=== PATIENT | male | born 1960 | race Caucasian/White ===

== ENCOUNTER 2020-07-27 12:26 | Inpatient (IN) | payer OTHER ==
[2020-07-27 17:19] VITALS: BMI 19.0
[2020-07-27] MEDS ORDERED: NICOTINE POLACRILEX 2 MG GUM BUC PRN (17:19)
[2020-07-27] MEDS ORDERED: METHOCARBAMOL 500 MG TABLET PO PRN (17:19)
[2020-07-27] MEDS ORDERED: BISMUTH SUBSALICYLATE 524 MG/30 ML UD PO PRN (17:19)
[2020-07-27] MEDS ORDERED: MAG HYDROX/AL HYDROX/SIMETH 30 ML UNIT-DOSE CUP PO PRN (17:19)
[2020-07-27] MEDS ORDERED: IBUPROFEN 400 MG TABLET (FP) PO PRN (17:19)
[2020-07-27] MEDS ORDERED: MAGNESIUM CITRATE 300 ML BOTTLE PO PRN (17:19)
[2020-07-27] MEDS ORDERED: ACETAMINOPHEN 325 MG TABLET (FP) PO PRN ×2 (17:19)
[2020-07-27] MEDS ORDERED: MAGNESIUM HYDROX 2400MG/30ML ORAL SUSPENSION 30 ML CUP PO PRN (17:19)
[2020-07-27] MEDS ORDERED: chlordiazePOXIDE HCL 25 MG CAPSULE PO PRN (17:19)
[2020-07-27] MEDS ORDERED: ONDANSETRON *ODT* 4 MG TABLET SL PRN (17:19)
[2020-07-27] MEDS ORDERED: MENTHOL/PHENOL 1 EACH UD MM PRN (17:19)
[2020-07-27] MEDS: chlordiazePOXIDE HCL 25 MG CAPSULE PO SCH ×2 (20:23→23:04)
[2020-07-27] MEDS: hydrOXYzine PAMOATE 25 MG CAPSULE (FP) PO SCH ×2 (20:25→23:05)
[2020-07-27] MEDS: PRENATAL VITAMINS W/ FOLIC ACID TABLET (FP) PO SCH (20:26)
[2020-07-27] MEDS: THIAMINE HCL 100 MG TABLET (FP) PO SCH (23:04)
[2020-07-27] MEDS: MELATONIN 5 MG TABLETS PO SCH (23:05)
[2020-07-28] MEDS: chlordiazePOXIDE HCL 25 MG CAPSULE PO SCH ×4 (05:53→22:15)
[2020-07-28] MEDS: hydrOXYzine PAMOATE 25 MG CAPSULE (FP) PO SCH ×5 (05:53→22:14)
[2020-07-28] MEDS ORDERED: METHADONE HCL 10 MG TABLET PO ONE (09:09)
[2020-07-28] MEDS ORDERED: METHADONE 80 MG, METHADONE 20 MG, METHADONE 5 MG PO ONE (09:30)
[2020-07-28] MEDS ORDERED: METHADONE HCL 40 MG DISPERSABLE TABLET ONE (09:45)
[2020-07-28] MEDS ORDERED: METHADONE HCL 10 MG TABLET ONE (09:45)
[2020-07-28] MEDS ORDERED: METHADONE HCL 5 MG TABLET ONE (09:45)
[2020-07-28] MEDS ORDERED: NICOTINE 21 MG/24 HOURS TOPICAL PATCH TD SCH (10:00)
[2020-07-28] MEDS: PRENATAL VITAMINS W/ FOLIC ACID TABLET (FP) PO SCH (10:29)
[2020-07-28 10:47] LABS: HEMATOCRIT 41.8 % (35.4-49); MCH 29.4 pg (25.7-33.7); MCHC 33.6 g/dl (32.0-35.9); MEAN CELL VOLUME 87.6 fl (80-96); MEAN PLT VOLUME 9.9 fl (7.5-11.1); PLATELET COUNT 237 K/MM3 (134-434); RBC 4.76 M/mm3 (4.00-5.60); RDW 15.7 % (11.9-15.9); WHITE BLOOD COUNT 9.1 K/mm3 (4.0-10.0)
[2020-07-28 10:48] LABS: POTASSIUM 3.9 mmol/L (3.5-5.1)
[2020-07-28 10:57] LABS: BLOOD UREA NITROGEN 12.9 mg/dL (7-18); CALCIUM 8.8 mg/dL (8.5-10.1)
[2020-07-28 11:00] LABS: CREATININE 0.6 mg/dL (0.55-1.3)
[2020-07-28 11:02] LABS: BILIRUBIN,TOTAL 1.5 mg/dL (0.2-1)
[2020-07-28 17:31] VITALS: TEMP 97.8
[2020-07-28] MEDS: MELATONIN 5 MG TABLETS PO SCH (22:14)
[2020-07-28] MEDS: THIAMINE HCL 100 MG TABLET (FP) PO SCH (22:14)
[2020-07-28 23:08] VITALS: BP 146/104; PULSE 125
[2020-07-29] MEDS ORDERED: chlordiazePOXIDE HCL 25 MG CAPSULE PO SCH (05:00)
[2020-07-29] MEDS ORDERED: METHADONE 80 MG, METHADONE 20 MG, METHADONE 5 MG PO SCH (06:00)
[2020-07-29] MEDS ORDERED: METHADONE HCL 40 MG DISPERSABLE TABLET PO SCH (06:00)
[2020-07-30] MEDS ORDERED: chlordiazePOXIDE HCL 10 MG CAPSULE PO PRN
[2020-07-30] MEDS ORDERED: chlordiazePOXIDE HCL 10 MG CAPSULE PO SCH (05:00)
[2020-07-31] MEDS ORDERED: chlordiazePOXIDE HCL 10 MG CAPSULE PO SCH (05:00)
[2020-08-01] MEDS ORDERED: chlordiazePOXIDE HCL 10 MG CAPSULE PO ONE (05:00)
== END 2020-07-28 23:08 | disposition left against medical advice (07) | DRG 770 ==
LOC: YASAS 12:26 → Y3N 17:38
PROVIDERS: ADMIT Allergy & Immunology; ATTEND Allergy & Immunology
PROC: HZ2ZZZZ Detoxification Services for Substance Abuse Treatment (ICD-10-PCS; principal; 2020-07-27)
DX: F10.230 Alcohol dependence with withdrawal, uncomplicated (principal); F11.20 Opioid dependence, uncomplicated; F17.210 Nicotine dependence, cigarettes, uncomplicated; F19.24 Other psychoactive substance dependence with psychoactive substance-induced mood disorder; F43.10 Post-traumatic stress disorder, unspecified; I10 Essential (primary) hypertension; J44.9 Chronic obstructive pulmonary disease, unspecified; K21.9 Gastro-esophageal reflux disease without esophagitis; M54.5 Low back pain; G89.29 Other chronic pain; R56.1 Post traumatic seizures; Z87.820 Personal history of traumatic brain injury; R63.4 Abnormal weight loss; Z68.1 Body mass index [BMI] 19.9 or less, adult; Z56.0 Unemployment, unspecified; Z59.0 Homelessness
CPT/HCPCS: 36415; 80053; 85027; 86780; 93005; 93010; C9803; U0003

== ENCOUNTER 2021-02-21 12:32 | Inpatient (IN) | payer OTHER ==
[2021-02-21 13:59] VITALS: BMI 18.2
[2021-02-21] MEDS ORDERED: MAG HYDROX/AL HYDROX/SIMETH 30 ML UNIT-DOSE CUP PO PRN (14:51)
[2021-02-21] MEDS ORDERED: MENTHOL/PHENOL 1 EACH UD MM PRN (14:51)
[2021-02-21] MEDS ORDERED: MAGNESIUM HYDROX 2400MG/30ML ORAL SUSPENSION 30 ML CUP PO PRN (14:51)
[2021-02-21] MEDS ORDERED: IBUPROFEN 400 MG TABLET (FP) PO PRN (14:51)
[2021-02-21] MEDS ORDERED: ONDANSETRON *ODT* 4 MG TABLET SL PRN (14:51)
[2021-02-21] MEDS ORDERED: ACETAMINOPHEN 325 MG TABLET (FP) PO PRN ×2 (14:51)
[2021-02-21] MEDS ORDERED: NICOTINE POLACRILEX 4 MG GUM BUC PRN (14:51)
[2021-02-21] MEDS ORDERED: MAGNESIUM CITRATE 300 ML BOTTLE PO PRN (14:51)
[2021-02-21] MEDS ORDERED: BISMUTH SUBSALICYLATE 524 MG/30 ML PO PRN (14:51)
[2021-02-21] MEDS ORDERED: NICOTINE 10 MG CARTRIDGE (INHALER) IH PRN (14:51)
[2021-02-21] MEDS ORDERED: clonazePAM 0.5 MG ODT TABLETS SL PRN (15:15)
[2021-02-21] MEDS ORDERED: methaDONE HCL 10 MG TABLET (FOR DETOX USE ONLY) PO ONE (15:45)
[2021-02-21] MEDS ORDERED: diazePAM 5 MG TABLET PO SCH (17:00)
[2021-02-21] MEDS: diazePAM 5 MG TABLET PO SCH ×2 (18:15→23:05)
[2021-02-21] MEDS: cloNIDine HCL 0.1 MG TABLET PO PRN ×2 (18:15→22:26)
[2021-02-21] MEDS: hydrOXYzine PAMOATE 25 MG CAPSULE (FP) PO PRN (18:15)
[2021-02-21] MEDS: METHOCARBAMOL 500 MG TABLET PO PRN (20:25)
[2021-02-21] MEDS: THIAMINE HCL 100 MG TABLET (FP) PO SCH (22:26)
[2021-02-21] MEDS: MELATONIN 5 MG TABLETS PO SCH (22:26)
[2021-02-22] MEDS: diazePAM 5 MG TABLET PO SCH ×3 (05:26→17:58)
[2021-02-22 08:20] LABS: HEMATOCRIT 39.5 % (35.4-49); HEMOGLOBIN 13.7 GM/dL (11.7-16.9); MCHC 34.7 g/dl (32.0-35.9); MEAN CELL VOLUME 89.3 fl (80-96); MEAN PLT VOLUME 9.8 fl (7.5-11.1); PLATELET COUNT 223 10^3/uL (134-434); RBC 4.42 M/mm3 (4.00-5.60); RDW 14.3 % (11.9-15.9); WHITE BLOOD COUNT 6.3 K/mm3 (4.0-10.0)
[2021-02-22 08:50] LABS: ALBUMIN 3.2 g/dl (3.4-5.0); BLOOD UREA NITROGEN 24.3 mg/dL (7-18); CALCIUM 9.1 mg/dL (8.5-10.1)
[2021-02-22 08:53] LABS: CREATININE 0.8 mg/dL (0.55-1.3)
[2021-02-22 08:54] LABS: BILIRUBIN,TOTAL 0.5 mg/dL (0.2-1); TOT PROT 6.7 g/dl (6.4-8.2)
[2021-02-22] MEDS: PRENATAL VITAMINS W/ FOLIC ACID TABLET (FP) PO SCH (10:30)
[2021-02-22] MEDS: NIFEdipine E.R 60 MG TABLET PO SCH (10:30)
[2021-02-22] MEDS: hydrOXYzine PAMOATE 25 MG CAPSULE (FP) PO PRN ×2 (17:59→22:08)
[2021-02-22] MEDS: cloNIDine HCL 0.1 MG TABLET PO PRN ×2 (17:59→22:08)
[2021-02-22] MEDS: THIAMINE HCL 100 MG TABLET (FP) PO SCH (22:08)
[2021-02-22] MEDS: METHOCARBAMOL 500 MG TABLET PO PRN (22:08)
[2021-02-22] MEDS: MELATONIN 5 MG TABLETS PO SCH (22:08)
[2021-02-22] MEDS: diazePAM 5 MG TABLET PO PRN (22:08)
[2021-02-23] MEDS: diazePAM 5 MG TABLET PO SCH ×3 (05:29→22:10)
[2021-02-23] MEDS ORDERED: diazePAM 5 MG TABLET PO SCH (06:00)
[2021-02-23] MEDS ORDERED: methaDONE HCL 10 MG TABLET (FOR DETOX USE ONLY) PO ONE (10:00)
[2021-02-23] MEDS: PRENATAL VITAMINS W/ FOLIC ACID TABLET (FP) PO SCH (10:28)
[2021-02-23] MEDS: NIFEdipine E.R 60 MG TABLET PO SCH (10:29)
[2021-02-23] MEDS: METHOCARBAMOL 500 MG TABLET PO PRN (10:29)
[2021-02-23] MEDS: hydrOXYzine PAMOATE 25 MG CAPSULE (FP) PO PRN (10:31)
[2021-02-23] MEDS: diazePAM 5 MG TABLET PO PRN (10:31)
[2021-02-23] MEDS: methaDONE HCL 10 MG TABLET PO SCH (18:06)
[2021-02-23] MEDS: MELATONIN 5 MG TABLETS PO SCH (22:10)
[2021-02-23] MEDS: THIAMINE HCL 100 MG TABLET (FP) PO SCH (22:10)
[2021-02-24] MEDS ORDERED: diazePAM 5 MG TABLET PO SCH (06:00)
[2021-02-24] MEDS: methaDONE HCL 10 MG TABLET PO SCH (06:01)
[2021-02-24] MEDS: diazePAM 5 MG TABLET PO SCH ×2 (06:03→18:11)
[2021-02-24] MEDS: PRENATAL VITAMINS W/ FOLIC ACID TABLET (FP) PO SCH (10:25)
[2021-02-24] MEDS: NIFEdipine E.R 60 MG TABLET PO SCH (10:25)
[2021-02-24] MEDS: diazePAM 5 MG TABLET PO PRN (10:25)
[2021-02-24] MEDS: THIAMINE HCL 100 MG TABLET (FP) PO SCH (22:08)
[2021-02-24] MEDS: hydrOXYzine PAMOATE 25 MG CAPSULE (FP) PO PRN (22:09)
[2021-02-24] MEDS: MELATONIN 5 MG TABLETS PO SCH (22:09)
[2021-02-25] MEDS: methaDONE HCL 10 MG TABLET PO SCH (05:16)
[2021-02-25] MEDS ORDERED: diazePAM 5 MG TABLET PO ONE ×2 (06:00)
[2021-02-25] MEDS ORDERED: methaDONE HCL 10 MG TABLET (FOR DETOX USE ONLY) PO ONE (10:00)
[2021-02-25 10:06] VITALS: BP 134/73; PULSE 81; TEMP 96.9
[2021-02-25] MEDS: NIFEdipine E.R 60 MG TABLET PO SCH (10:54)
[2021-02-25] MEDS: PRENATAL VITAMINS W/ FOLIC ACID TABLET (FP) PO SCH (10:54)
== END 2021-02-25 13:33 | disposition other institution (70) | DRG 773 ==
LOC: YASAS 12:32 → Y3N 14:50
PROVIDERS: ADMIT Allergy & Immunology; ATTEND Allergy & Immunology
PROC: HZ2ZZZZ Detoxification Services for Substance Abuse Treatment (ICD-10-PCS; principal; 2021-02-21)
DX: F10.230 Alcohol dependence with withdrawal, uncomplicated (principal); F11.20 Opioid dependence, uncomplicated; F13.20 Sedative, hypnotic or anxiolytic dependence, uncomplicated; F17.210 Nicotine dependence, cigarettes, uncomplicated; F19.24 Other psychoactive substance dependence with psychoactive substance-induced mood disorder; F41.9 Anxiety disorder, unspecified; G40.909 Epilepsy, unspecified, not intractable, without status epilepticus; I10 Essential (primary) hypertension; J44.9 Chronic obstructive pulmonary disease, unspecified; K21.9 Gastro-esophageal reflux disease without esophagitis; M54.5 Low back pain; G89.29 Other chronic pain; Z86.59 Personal history of other mental and behavioral disorders; Z56.0 Unemployment, unspecified; Z59.0 Homelessness
CPT/HCPCS: 36415; 80053; 85027; 86780; C9803; J0735; U0003; U0005

== ENCOUNTER 2021-02-25 13:43 | Inpatient (IN) | payer OTHER ==
[2021-02-25] MEDS ORDERED: guaiFENesin 200 MG/10 ML 10 ML UNIT-DOSE CUPS PO PRN (16:37)
[2021-02-25] MEDS ORDERED: MAGNESIUM CITRATE 300 ML BOTTLE PO PRN (16:37)
[2021-02-25] MEDS ORDERED: P-EPHED 60MG/TRIPROLIDI 2.5MG TABLET PO PRN (16:37)
[2021-02-25] MEDS ORDERED: NICOTINE 10 MG CARTRIDGE (INHALER) IH PRN (16:37)
[2021-02-25] MEDS ORDERED: MAG HYDROX/AL HYDROX/SIMETH 30 ML UNIT-DOSE CUP PO PRN (16:37)
[2021-02-25] MEDS ORDERED: LOPERAMIDE HCL 2 MG CAPSULE PO PRN (16:37)
[2021-02-25] MEDS ORDERED: MENTHOL/PHENOL 1 EACH UD MM PRN (16:37)
[2021-02-25] MEDS: hydrOXYzine PAMOATE 25 MG CAPSULE (FP) PO SCH ×2 (19:01→21:09)
[2021-02-25] MEDS: THIAMINE HCL 100 MG TABLET (FP) PO SCH (21:09)
[2021-02-25] MEDS: MELATONIN 5 MG TABLETS PO SCH (21:09)
[2021-02-26] MEDS: methaDONE HCL 10 MG TABLET PO SCH (06:34)
[2021-02-26] MEDS: hydrOXYzine PAMOATE 25 MG CAPSULE (FP) PO SCH ×5 (06:35→21:42)
[2021-02-26] MEDS: NICOTINE 7 MG/24 HOURS TOPICAL PATCH TD SCH (10:59)
[2021-02-26] MEDS ORDERED: PT OWN MED DRAWER 7, Y5N ONE (11:00)
[2021-02-26] MEDS: NIFEdipine E.R 60 MG TABLET PO SCH (11:00)
[2021-02-26] MEDS: PRENATAL VITAMINS W/ FOLIC ACID TABLET (FP) PO SCH (11:01)
[2021-02-26] MEDS: MELATONIN 5 MG TABLETS PO SCH (21:42)
[2021-02-26] MEDS: THIAMINE HCL 100 MG TABLET (FP) PO SCH (21:42)
[2021-02-27] MEDS: hydrOXYzine PAMOATE 25 MG CAPSULE (FP) PO SCH ×3 (06:08→13:44)
[2021-02-27] MEDS: methaDONE HCL 10 MG TABLET PO SCH (06:09)
[2021-02-27] MEDS: MAGNESIUM HYDROX 2400MG/30ML ORAL SUSPENSION 30 ML CUP PO PRN (06:54)
[2021-02-27] MEDS ORDERED: cloNIDine HCL 0.1 MG TABLET PO ONE (09:00)
[2021-02-27] MEDS: PRENATAL VITAMINS W/ FOLIC ACID TABLET (FP) PO SCH (09:05)
[2021-02-27] MEDS: NICOTINE 7 MG/24 HOURS TOPICAL PATCH TD SCH (09:07)
[2021-02-27] MEDS: ALBUTEROL SO4 HFA INHALER IH PRN (09:41)
[2021-02-27] MEDS: cloNIDine HCL 0.1 MG TABLET PO SCH ×2 (11:00→21:21)
[2021-02-27] MEDS: NIFEdipine E.R 60 MG TABLET PO SCH (11:44)
[2021-02-27] MEDS: hydrOXYzine PAMOATE 50 MG CAPSULE (FP) PO SCH ×2 (17:15→21:21)
[2021-02-27] MEDS: THIAMINE HCL 100 MG TABLET (FP) PO SCH (21:21)
[2021-02-27] MEDS: MELATONIN 5 MG TABLETS PO SCH (21:21)
[2021-02-28] MEDS: hydrOXYzine PAMOATE 50 MG CAPSULE (FP) PO SCH ×4 (05:56→21:26)
[2021-02-28] MEDS: methaDONE HCL 10 MG TABLET PO SCH (05:58)
[2021-02-28] MEDS: cloNIDine HCL 0.1 MG TABLET PO SCH ×3 (07:42→21:26)
[2021-02-28] MEDS: HYDROCHLOROTHIAZIDE 25 MG TABLET (FP) PO SCH (10:13)
[2021-02-28] MEDS: PRENATAL VITAMINS W/ FOLIC ACID TABLET (FP) PO SCH (10:13)
[2021-02-28] MEDS: NIFEdipine E.R 60 MG TABLET PO SCH (10:13)
[2021-02-28] MEDS: NICOTINE 7 MG/24 HOURS TOPICAL PATCH TD SCH (10:13)
[2021-02-28] MEDS: MELATONIN 5 MG TABLETS PO SCH (21:26)
[2021-02-28] MEDS: THIAMINE HCL 100 MG TABLET (FP) PO SCH (21:26)
[2021-03-01] MEDS: hydrOXYzine PAMOATE 50 MG CAPSULE (FP) PO SCH ×4 (06:20→21:32)
[2021-03-01] MEDS: methaDONE HCL 10 MG TABLET PO SCH (06:32)
[2021-03-01] MEDS: HYDROCHLOROTHIAZIDE 25 MG TABLET (FP) PO SCH (10:39)
[2021-03-01] MEDS: PRENATAL VITAMINS W/ FOLIC ACID TABLET (FP) PO SCH (10:39)
[2021-03-01] MEDS: NICOTINE 7 MG/24 HOURS TOPICAL PATCH TD SCH (10:40)
[2021-03-01] MEDS: NIFEdipine E.R 60 MG TABLET PO SCH (10:40)
[2021-03-01] MEDS: ALBUTEROL SO4 HFA INHALER IH PRN (10:41)
[2021-03-01] MEDS: cloNIDine HCL 0.1 MG TABLET PO SCH ×2 (10:42→21:32)
[2021-03-01] MEDS ORDERED: PT OWN MED DRAWER 7, Y5N ONE (19:46)
[2021-03-01] MEDS: MELATONIN 5 MG TABLETS PO SCH (21:32)
[2021-03-01] MEDS: THIAMINE HCL 100 MG TABLET (FP) PO SCH (21:32)
[2021-03-02] MEDS: hydrOXYzine PAMOATE 50 MG CAPSULE (FP) PO SCH ×4 (06:08→21:59)
[2021-03-02] MEDS: methaDONE HCL 10 MG TABLET PO SCH (06:09)
[2021-03-02] MEDS: PRENATAL VITAMINS W/ FOLIC ACID TABLET (FP) PO SCH (10:27)
[2021-03-02] MEDS: HYDROCHLOROTHIAZIDE 25 MG TABLET (FP) PO SCH (10:27)
[2021-03-02] MEDS: NIFEdipine E.R 60 MG TABLET PO SCH (10:27)
[2021-03-02] MEDS: NICOTINE 7 MG/24 HOURS TOPICAL PATCH TD SCH (10:28)
[2021-03-02] MEDS: cloNIDine HCL 0.1 MG TABLET PO SCH ×2 (12:01→21:59)
[2021-03-02] MEDS: MELATONIN 5 MG TABLETS PO SCH (21:59)
[2021-03-02] MEDS: THIAMINE HCL 100 MG TABLET (FP) PO SCH (21:59)
[2021-03-02] MEDS: IBUPROFEN 400 MG TABLET (FP) PO PRN (22:01)
[2021-03-03] MEDS: methaDONE HCL 10 MG TABLET PO SCH (06:36)
[2021-03-03] MEDS: hydrOXYzine PAMOATE 50 MG CAPSULE (FP) PO SCH ×4 (06:37→21:48)
[2021-03-03] MEDS: HYDROCHLOROTHIAZIDE 25 MG TABLET (FP) PO SCH (10:23)
[2021-03-03] MEDS: PRENATAL VITAMINS W/ FOLIC ACID TABLET (FP) PO SCH (10:23)
[2021-03-03] MEDS: cloNIDine HCL 0.1 MG TABLET PO SCH ×2 (10:23→21:48)
[2021-03-03] MEDS: NIFEdipine E.R 60 MG TABLET PO SCH (10:24)
[2021-03-03] MEDS: NICOTINE 7 MG/24 HOURS TOPICAL PATCH TD SCH (10:24)
[2021-03-03] MEDS: THIAMINE HCL 100 MG TABLET (FP) PO SCH (21:48)
[2021-03-03] MEDS: MELATONIN 5 MG TABLETS PO SCH (21:48)
[2021-03-04] MEDS: methaDONE HCL 10 MG TABLET PO SCH (06:44)
[2021-03-04] MEDS: hydrOXYzine PAMOATE 50 MG CAPSULE (FP) PO SCH ×4 (06:44→22:29)
[2021-03-04] MEDS: cloNIDine HCL 0.1 MG TABLET PO SCH ×2 (10:17→21:32)
[2021-03-04] MEDS: HYDROCHLOROTHIAZIDE 25 MG TABLET (FP) PO SCH (10:17)
[2021-03-04] MEDS: NIFEdipine E.R 60 MG TABLET PO SCH (10:17)
[2021-03-04] MEDS: PRENATAL VITAMINS W/ FOLIC ACID TABLET (FP) PO SCH (10:17)
[2021-03-04] MEDS: NICOTINE 7 MG/24 HOURS TOPICAL PATCH TD SCH (10:18)
[2021-03-04] MEDS: THIAMINE HCL 100 MG TABLET (FP) PO SCH (21:32)
[2021-03-04] MEDS: MELATONIN 5 MG TABLETS PO SCH (21:32)
[2021-03-04] MEDS: IBUPROFEN 400 MG TABLET (FP) PO PRN (21:33)
[2021-03-05] MEDS: hydrOXYzine PAMOATE 50 MG CAPSULE (FP) PO SCH ×4 (04:01→21:37)
[2021-03-05] MEDS: methaDONE HCL 10 MG TABLET PO SCH (06:32)
[2021-03-05] MEDS: NIFEdipine E.R 60 MG TABLET PO SCH (10:44)
[2021-03-05] MEDS: PRENATAL VITAMINS W/ FOLIC ACID TABLET (FP) PO SCH (10:44)
[2021-03-05] MEDS: HYDROCHLOROTHIAZIDE 25 MG TABLET (FP) PO SCH (10:44)
[2021-03-05] MEDS: NICOTINE 7 MG/24 HOURS TOPICAL PATCH TD SCH (10:45)
[2021-03-05] MEDS: cloNIDine HCL 0.1 MG TABLET PO SCH ×2 (10:46→21:37)
[2021-03-05] MEDS: THIAMINE HCL 100 MG TABLET (FP) PO SCH (21:37)
[2021-03-05] MEDS: MELATONIN 5 MG TABLETS PO SCH (21:37)
[2021-03-05] MEDS: MAGNESIUM HYDROX 2400MG/30ML ORAL SUSPENSION 30 ML CUP PO PRN (21:39)
[2021-03-06] MEDS: hydrOXYzine PAMOATE 50 MG CAPSULE (FP) PO SCH ×4 (06:11→21:31)
[2021-03-06] MEDS: methaDONE HCL 10 MG TABLET PO SCH (06:27)
[2021-03-06] MEDS: PRENATAL VITAMINS W/ FOLIC ACID TABLET (FP) PO SCH (10:27)
[2021-03-06] MEDS: NICOTINE 7 MG/24 HOURS TOPICAL PATCH TD SCH (10:28)
[2021-03-06] MEDS: NIFEdipine E.R 60 MG TABLET PO SCH (10:28)
[2021-03-06] MEDS: HYDROCHLOROTHIAZIDE 25 MG TABLET (FP) PO SCH (10:28)
[2021-03-06] MEDS: cloNIDine HCL 0.1 MG TABLET PO SCH ×2 (10:28→21:31)
[2021-03-06] MEDS ORDERED: PT OWN MED DRAWER 7, Y5N ONE (16:44)
[2021-03-06] MEDS: MELATONIN 5 MG TABLETS PO SCH (21:31)
[2021-03-06] MEDS: THIAMINE HCL 100 MG TABLET (FP) PO SCH (21:31)
[2021-03-06] MEDS: ACETAMINOPHEN 325 MG TABLET (FP) PO PRN (21:32)
[2021-03-07] MEDS: methaDONE HCL 10 MG TABLET PO SCH (06:26)
[2021-03-07] MEDS: hydrOXYzine PAMOATE 50 MG CAPSULE (FP) PO SCH ×2 (06:27→10:16)
[2021-03-07] MEDS: NICOTINE 7 MG/24 HOURS TOPICAL PATCH TD SCH (10:16)
[2021-03-07] MEDS: PRENATAL VITAMINS W/ FOLIC ACID TABLET (FP) PO SCH (10:16)
[2021-03-07] MEDS: HYDROCHLOROTHIAZIDE 25 MG TABLET (FP) PO SCH (10:16)
[2021-03-07] MEDS: NIFEdipine E.R 60 MG TABLET PO SCH (10:16)
[2021-03-07] MEDS: cloNIDine HCL 0.1 MG TABLET PO SCH ×2 (10:16→21:48)
[2021-03-07] MEDS: hydrOXYzine PAMOATE 50 MG CAPSULE (FP) PO PRN (15:26)
[2021-03-07] MEDS: MELATONIN 5 MG TABLETS PO SCH (21:48)
[2021-03-07] MEDS: THIAMINE HCL 100 MG TABLET (FP) PO SCH (21:48)
[2021-03-08] MEDS: methaDONE HCL 10 MG TABLET PO SCH (06:57)
[2021-03-08] MEDS: NICOTINE 7 MG/24 HOURS TOPICAL PATCH TD SCH (10:19)
[2021-03-08] MEDS: PRENATAL VITAMINS W/ FOLIC ACID TABLET (FP) PO SCH (10:19)
[2021-03-08] MEDS: cloNIDine HCL 0.1 MG TABLET PO SCH (10:19)
[2021-03-08] MEDS: HYDROCHLOROTHIAZIDE 25 MG TABLET (FP) PO SCH (10:19)
[2021-03-08] MEDS: NIFEdipine E.R 60 MG TABLET PO SCH (10:19)
[2021-03-08] MEDS: ACETAMINOPHEN 325 MG TABLET (FP) PO PRN (10:20)
[2021-03-08] MEDS ORDERED: SENNOSIDES 8.6MG TABLET (FP) PO PRN (11:39)
[2021-03-08] MEDS: MELATONIN 5 MG TABLETS PO SCH (21:00)
[2021-03-08] MEDS: hydrOXYzine PAMOATE 50 MG CAPSULE (FP) PO PRN (21:01)
[2021-03-08] MEDS: cloNIDine HCL 0.1 MG TABLET PO PRN (21:01)
[2021-03-08] MEDS: THIAMINE HCL 100 MG TABLET (FP) PO SCH (21:01)
[2021-03-08] MEDS: MAGNESIUM HYDROX 2400MG/30ML ORAL SUSPENSION 30 ML CUP PO PRN (21:02)
[2021-03-08] MEDS: METHOCARBAMOL 500 MG TABLET PO PRN (21:02)
[2021-03-09] MEDS: METHOCARBAMOL 500 MG TABLET PO PRN ×3 (06:24→21:07)
[2021-03-09] MEDS: methaDONE HCL 10 MG TABLET PO SCH (06:24)
[2021-03-09] MEDS: ALBUTEROL SO4 HFA INHALER IH PRN (07:03)
[2021-03-09] MEDS: hydrOXYzine PAMOATE 50 MG CAPSULE (FP) PO PRN ×2 (09:29→21:07)
[2021-03-09] MEDS: NIFEdipine E.R 60 MG TABLET PO SCH (09:29)
[2021-03-09] MEDS: PRENATAL VITAMINS W/ FOLIC ACID TABLET (FP) PO SCH (09:29)
[2021-03-09] MEDS: NICOTINE 7 MG/24 HOURS TOPICAL PATCH TD SCH (09:30)
[2021-03-09] MEDS: HYDROCHLOROTHIAZIDE 25 MG TABLET (FP) PO SCH (09:30)
[2021-03-09] MEDS ORDERED: PT OWN MED DRAWER 7, Y5N ONE (10:58)
[2021-03-09] MEDS: THIAMINE HCL 100 MG TABLET (FP) PO SCH (21:07)
[2021-03-09] MEDS: MELATONIN 5 MG TABLETS PO SCH (21:35)
[2021-03-10] MEDS: METHOCARBAMOL 500 MG TABLET PO PRN ×2 (06:14→21:40)
[2021-03-10] MEDS: methaDONE HCL 10 MG TABLET PO SCH (06:15)
[2021-03-10] MEDS: ALBUTEROL SO4 HFA INHALER IH PRN (06:16)
[2021-03-10] MEDS: PRENATAL VITAMINS W/ FOLIC ACID TABLET (FP) PO SCH (09:41)
[2021-03-10] MEDS: HYDROCHLOROTHIAZIDE 25 MG TABLET (FP) PO SCH (09:41)
[2021-03-10] MEDS: hydrOXYzine PAMOATE 50 MG CAPSULE (FP) PO PRN ×2 (09:41→21:40)
[2021-03-10] MEDS: NICOTINE 7 MG/24 HOURS TOPICAL PATCH TD SCH (09:41)
[2021-03-10] MEDS: NIFEdipine E.R 60 MG TABLET PO SCH (09:41)
[2021-03-10] MEDS: ACETAMINOPHEN 325 MG TABLET (FP) PO PRN (09:42)
[2021-03-10] MEDS: THIAMINE HCL 100 MG TABLET (FP) PO SCH (21:40)
[2021-03-10] MEDS: MELATONIN 5 MG TABLETS PO SCH (21:40)
[2021-03-11] MEDS: hydrOXYzine PAMOATE 50 MG CAPSULE (FP) PO PRN ×3 (06:18→21:39)
[2021-03-11] MEDS: methaDONE HCL 10 MG TABLET PO SCH (06:19)
[2021-03-11] MEDS: METHOCARBAMOL 500 MG TABLET PO PRN ×3 (06:20→21:38)
[2021-03-11] MEDS: HYDROCHLOROTHIAZIDE 25 MG TABLET (FP) PO SCH (10:00)
[2021-03-11] MEDS: NICOTINE 7 MG/24 HOURS TOPICAL PATCH TD SCH (10:00)
[2021-03-11] MEDS: PRENATAL VITAMINS W/ FOLIC ACID TABLET (FP) PO SCH (10:00)
[2021-03-11] MEDS: NIFEdipine E.R 60 MG TABLET PO SCH (10:00)
[2021-03-11] MEDS: MELATONIN 5 MG TABLETS PO SCH (21:39)
[2021-03-11] MEDS: THIAMINE HCL 100 MG TABLET (FP) PO SCH (21:39)
[2021-03-12] MEDS: methaDONE HCL 10 MG TABLET PO SCH (06:29)
[2021-03-12] MEDS: METHOCARBAMOL 500 MG TABLET PO PRN ×2 (06:30→21:38)
[2021-03-12] MEDS: hydrOXYzine PAMOATE 50 MG CAPSULE (FP) PO PRN ×2 (06:30→21:38)
[2021-03-12] MEDS: NICOTINE 7 MG/24 HOURS TOPICAL PATCH TD SCH (10:07)
[2021-03-12] MEDS: PRENATAL VITAMINS W/ FOLIC ACID TABLET (FP) PO SCH (10:07)
[2021-03-12] MEDS: NIFEdipine E.R 60 MG TABLET PO SCH (10:08)
[2021-03-12] MEDS: HYDROCHLOROTHIAZIDE 25 MG TABLET (FP) PO SCH (10:08)
[2021-03-12] MEDS: ALBUTEROL SO4 HFA INHALER IH PRN (21:37)
[2021-03-12] MEDS: THIAMINE HCL 100 MG TABLET (FP) PO SCH (21:39)
[2021-03-12] MEDS: cloNIDine HCL 0.1 MG TABLET PO PRN (21:39)
[2021-03-12] MEDS: MELATONIN 5 MG TABLETS PO SCH (21:39)
[2021-03-13] MEDS: methaDONE HCL 10 MG TABLET PO SCH (06:07)
[2021-03-13] MEDS: METHOCARBAMOL 500 MG TABLET PO PRN ×3 (06:08→21:16)
[2021-03-13] MEDS: hydrOXYzine PAMOATE 50 MG CAPSULE (FP) PO PRN ×3 (06:08→21:16)
[2021-03-13] MEDS: PRENATAL VITAMINS W/ FOLIC ACID TABLET (FP) PO SCH (10:03)
[2021-03-13] MEDS: NIFEdipine E.R 60 MG TABLET PO SCH (10:03)
[2021-03-13] MEDS: HYDROCHLOROTHIAZIDE 25 MG TABLET (FP) PO SCH (10:03)
[2021-03-13] MEDS: NICOTINE 7 MG/24 HOURS TOPICAL PATCH TD SCH (10:04)
[2021-03-13] MEDS: MELATONIN 5 MG TABLETS PO SCH (21:15)
[2021-03-13] MEDS: THIAMINE HCL 100 MG TABLET (FP) PO SCH (21:15)
[2021-03-14] MEDS: hydrOXYzine PAMOATE 50 MG CAPSULE (FP) PO PRN ×3 (06:04→21:37)
[2021-03-14] MEDS: methaDONE HCL 10 MG TABLET PO SCH (06:05)
[2021-03-14] MEDS ORDERED: PT OWN MED DRAWER 7, Y5N ONE (09:43)
[2021-03-14] MEDS: PRENATAL VITAMINS W/ FOLIC ACID TABLET (FP) PO SCH (10:18)
[2021-03-14] MEDS: NICOTINE 7 MG/24 HOURS TOPICAL PATCH TD SCH (10:19)
[2021-03-14] MEDS: HYDROCHLOROTHIAZIDE 25 MG TABLET (FP) PO SCH (10:19)
[2021-03-14] MEDS: NIFEdipine E.R 60 MG TABLET PO SCH (10:19)
[2021-03-14] MEDS ORDERED: COLLOIDAL OATMEAL 1 BAR EACH TP PRN (11:07)
[2021-03-14] MEDS: METHOCARBAMOL 500 MG TABLET PO PRN ×2 (14:45→21:36)
[2021-03-14] MEDS: MELATONIN 5 MG TABLETS PO SCH (21:36)
[2021-03-14] MEDS: THIAMINE HCL 100 MG TABLET (FP) PO SCH (21:37)
[2021-03-15] MEDS: methaDONE HCL 10 MG TABLET PO SCH (06:14)
[2021-03-15] MEDS: hydrOXYzine PAMOATE 50 MG CAPSULE (FP) PO PRN ×2 (06:14→13:28)
[2021-03-15] MEDS: PRENATAL VITAMINS W/ FOLIC ACID TABLET (FP) PO SCH (09:50)
[2021-03-15] MEDS: HYDROCHLOROTHIAZIDE 25 MG TABLET (FP) PO SCH (09:51)
[2021-03-15] MEDS: METHOCARBAMOL 500 MG TABLET PO PRN (09:51)
[2021-03-15] MEDS: NIFEdipine E.R 60 MG TABLET PO SCH (09:51)
[2021-03-15] MEDS: NICOTINE 7 MG/24 HOURS TOPICAL PATCH TD SCH (09:51)
[2021-03-15] MEDS ORDERED: PT OWN MED DRAWER 7, Y5N ONE (10:45)
[2021-03-15] MEDS: THIAMINE HCL 100 MG TABLET (FP) PO SCH (22:24)
[2021-03-15] MEDS: MELATONIN 5 MG TABLETS PO SCH (22:24)
[2021-03-16] MEDS ORDERED: hydrOXYzine PAMOATE 25 MG CAPSULE (FP) PO ONE (05:24)
[2021-03-16] MEDS: hydrOXYzine PAMOATE 50 MG CAPSULE (FP) PO PRN ×2 (06:35→22:05)
[2021-03-16] MEDS: methaDONE HCL 10 MG TABLET PO SCH (06:35)
[2021-03-16] MEDS: METHOCARBAMOL 500 MG TABLET PO PRN ×2 (06:35→22:04)
[2021-03-16] MEDS: NICOTINE 7 MG/24 HOURS TOPICAL PATCH TD SCH (09:51)
[2021-03-16] MEDS: PRENATAL VITAMINS W/ FOLIC ACID TABLET (FP) PO SCH (09:51)
[2021-03-16] MEDS: NIFEdipine E.R 60 MG TABLET PO SCH (09:53)
[2021-03-16] MEDS: HYDROCHLOROTHIAZIDE 25 MG TABLET (FP) PO SCH (09:53)
[2021-03-16] MEDS: MELATONIN 5 MG TABLETS PO SCH (22:04)
[2021-03-16] MEDS: THIAMINE HCL 100 MG TABLET (FP) PO SCH (22:05)
[2021-03-17] MEDS: hydrOXYzine PAMOATE 50 MG CAPSULE (FP) PO PRN ×2 (06:24→21:11)
[2021-03-17] MEDS: METHOCARBAMOL 500 MG TABLET PO PRN ×2 (06:24→21:11)
[2021-03-17] MEDS: methaDONE HCL 10 MG TABLET PO SCH (06:25)
[2021-03-17] MEDS: PRENATAL VITAMINS W/ FOLIC ACID TABLET (FP) PO SCH (09:35)
[2021-03-17] MEDS: HYDROCHLOROTHIAZIDE 25 MG TABLET (FP) PO SCH (09:36)
[2021-03-17] MEDS: NICOTINE 7 MG/24 HOURS TOPICAL PATCH TD SCH (09:36)
[2021-03-17] MEDS: NIFEdipine E.R 60 MG TABLET PO SCH (09:37)
[2021-03-17] MEDS: THIAMINE HCL 100 MG TABLET (FP) PO SCH (21:11)
[2021-03-17] MEDS: MELATONIN 5 MG TABLETS PO SCH (21:11)
[2021-03-18] MEDS: METHOCARBAMOL 500 MG TABLET PO PRN ×2 (06:41→21:11)
[2021-03-18] MEDS: methaDONE HCL 10 MG TABLET PO SCH (06:42)
[2021-03-18] MEDS: hydrOXYzine PAMOATE 50 MG CAPSULE (FP) PO PRN ×2 (06:43→21:11)
[2021-03-18] MEDS: PRENATAL VITAMINS W/ FOLIC ACID TABLET (FP) PO SCH (09:54)
[2021-03-18] MEDS: HYDROCHLOROTHIAZIDE 25 MG TABLET (FP) PO SCH (09:55)
[2021-03-18] MEDS: NIFEdipine E.R 60 MG TABLET PO SCH (09:55)
[2021-03-18] MEDS: NICOTINE 7 MG/24 HOURS TOPICAL PATCH TD SCH (09:55)
[2021-03-18] MEDS: THIAMINE HCL 100 MG TABLET (FP) PO SCH (21:11)
[2021-03-18] MEDS: MELATONIN 5 MG TABLETS PO SCH (21:11)
[2021-03-19] MEDS: hydrOXYzine PAMOATE 50 MG CAPSULE (FP) PO PRN ×2 (06:09→22:16)
[2021-03-19] MEDS: METHOCARBAMOL 500 MG TABLET PO PRN ×2 (06:09→22:16)
[2021-03-19] MEDS: methaDONE HCL 10 MG TABLET PO SCH (07:02)
[2021-03-19] MEDS: NICOTINE 7 MG/24 HOURS TOPICAL PATCH TD SCH (10:00)
[2021-03-19] MEDS: PRENATAL VITAMINS W/ FOLIC ACID TABLET (FP) PO SCH (10:00)
[2021-03-19] MEDS: HYDROCHLOROTHIAZIDE 25 MG TABLET (FP) PO SCH (10:00)
[2021-03-19] MEDS: NIFEdipine E.R 60 MG TABLET PO SCH (10:00)
[2021-03-19] MEDS: THIAMINE HCL 100 MG TABLET (FP) PO SCH (22:16)
[2021-03-19] MEDS: MELATONIN 5 MG TABLETS PO SCH (22:16)
[2021-03-19] MEDS: ACETAMINOPHEN 325 MG TABLET (FP) PO PRN (22:17)
[2021-03-20] MEDS: methaDONE HCL 10 MG TABLET PO SCH (06:11)
[2021-03-20] MEDS: hydrOXYzine PAMOATE 50 MG CAPSULE (FP) PO PRN (06:11)
[2021-03-20] MEDS: METHOCARBAMOL 500 MG TABLET PO PRN (06:11)
[2021-03-20] MEDS: PRENATAL VITAMINS W/ FOLIC ACID TABLET (FP) PO SCH (09:51)
[2021-03-20] MEDS: NIFEdipine E.R 60 MG TABLET PO SCH (09:51)
[2021-03-20] MEDS: HYDROCHLOROTHIAZIDE 25 MG TABLET (FP) PO SCH (09:52)
[2021-03-20] MEDS: NICOTINE 7 MG/24 HOURS TOPICAL PATCH TD SCH (09:52)
[2021-03-20] MEDS: THIAMINE HCL 100 MG TABLET (FP) PO SCH (21:38)
[2021-03-20] MEDS: MELATONIN 5 MG TABLETS PO SCH (21:38)
[2021-03-21] MEDS: hydrOXYzine PAMOATE 50 MG CAPSULE (FP) PO PRN (06:09)
[2021-03-21] MEDS: METHOCARBAMOL 500 MG TABLET PO PRN (06:09)
[2021-03-21] MEDS: methaDONE HCL 10 MG TABLET PO SCH (06:10)
[2021-03-21 07:04] VITALS: TEMP 97.1
[2021-03-21] MEDS: PRENATAL VITAMINS W/ FOLIC ACID TABLET (FP) PO SCH (09:22)
[2021-03-21] MEDS: NIFEdipine E.R 60 MG TABLET PO SCH (09:23)
[2021-03-21] MEDS: NICOTINE 7 MG/24 HOURS TOPICAL PATCH TD SCH (09:24)
[2021-03-21] MEDS: HYDROCHLOROTHIAZIDE 25 MG TABLET (FP) PO SCH (09:24)
[2021-03-21 10:52] VITALS: BP 116/75; PULSE 86
== END 2021-03-21 09:45 | disposition home or self-care (01) | DRG 772 ==
LOC: YASAS 13:43 → Y5N 13:44 → Y3E 03-07 14:23 → Y5N 03-07 14:40
PROVIDERS: ADMIT Allergy & Immunology; ATTEND Allergy & Immunology
PROC: HZ42ZZZ Group Counseling for Substance Abuse Treatment, Cognitive-Behavioral (ICD-10-PCS; principal; 2021-02-25)
DX: F10.20 Alcohol dependence, uncomplicated (principal); F11.20 Opioid dependence, uncomplicated; F13.20 Sedative, hypnotic or anxiolytic dependence, uncomplicated; F17.210 Nicotine dependence, cigarettes, uncomplicated; F31.9 Bipolar disorder, unspecified; F19.24 Other psychoactive substance dependence with psychoactive substance-induced mood disorder; F41.9 Anxiety disorder, unspecified; I10 Essential (primary) hypertension; M54.50 Low back pain, unspecified; G89.29 Other chronic pain; Z86.59 Personal history of other mental and behavioral disorders; Z56.0 Unemployment, unspecified
CPT/HCPCS: J0735